=== PATIENT | female | born 1995 | race Caucasian/White ===

== ENCOUNTER 2022-07-08 06:46 | Inpatient (IN) | payer OTHER, SELFPAY ==
[2022-07-08] VITALS (29 sets, daily range): BP systolic 105–136; BP diastolic 59–91; PULSE 90–116; TEMP 36.8–37.4; O2SAT 80–99; BMI 27.8
[2022-07-08 02:41] LABS: ROM Internal Control Test YES-OK TO RESULT pt. (Internal QC); ROM Patient Test Negative (Negative)
[2022-07-08 07:14] LABS: Absolute Neutrophil Count 9.1 X10^3/uL (2.0-7.7); Basophil# 0.04 X10^3/uL; Basophil% 0.3 % (0-1); Eosinophils% 0.8 % (0-5); Hematocrit 37.9 % (37-47); Hemoglobin 12.8 g/dL (12.0-15.0); Mean Corp Hgb Conc 33.8 g/dL (32-36); Mean Corpuscular Hgb 30.4 pg (27.0-32.0); Mean Platelet Vol. 9.9 fl (6.2-12.0); Monocyte# 0.93 X10^3/uL; Monocyte% 7.8 % (0-10); NRBC Flagged by Analyzer 0 % (0-5); Neutrophil # 9.05 X10^3/uL (2.7-7.7); Neutrophil % 75.7 % (47-70); Platelet Count 226 K/mm3 (150-450); RBC Distribution Width SD 42.5 fl (35.1-43.9); Red Blood Count 4.21 M/mm3 (4.2-5.4)
[2022-07-08] MEDS: Lactated Ringers 1,000 ML 50 ML IV (07:20)
[2022-07-08] MEDS: Oxytocin 15 Units/NS 250ml 15 UNITS/250 ML IV.SOLN 2 UNITS IV (07:56)
--- NOTE | 2022-07-08 08:59 | PCM.HP.OB ---
HPI - General General Date of Admission: 07/08/22 Date of Service: 07/08/22 Chief Complaint: SROM HPI Narrative BYRON GROVE, is a 26 F who presents and 39+ weeks gestation with LOF. She reports she woke up around midnight and the bed was saturated with clear fluid. She was then continuing to feel leaking of fluid with moving. Not feeling ctx's. No bleeding. Good FM and she offers no complaints at this time. PFSH PFS Medical History (Updated 07/08/22 @ 09:[address] Apple Nguyen, DO) Depression Home Medications [id number] 1 mg tablet 1 tab PO DAILY 07/08/22 [History Last Taken 07/07/22 08:00] Allergy/AdvReac Type Severity Reaction Status Date / Time No Known Allergies Allergy Verified 07/08/22 02:18 Social History Smoking Status: Never smoker History Elective abortions Hx Para 0 Spontaneous abortions Hx # Term Pregnancies Ectopic pregnancies Hx # Pregnancies Multiple births # of living children NST FHR Rate Baby A FHR Category:: Category I Uterine Activity:: Ctx's q 2-6 min Vital Signs Vital Signs Vital Signs: 07/08/22 02:07 07/08/22 02:07 07/08/22 02:07 Temperature Temperature Source Pulse Rate 106 H Blood Pressure 136/87 H BP Systolic 136 BP Diastolic 87 Pulse Ox 99 07/08/22 02:07 07/08/22 02:07 07/08/22 07:47 Temperature 98.6 F Temperature Source Temporal Pulse Rate Blood Pressure 128/86 H BP Systolic 128 BP Diastolic 86 Pulse Ox 07/08/22 07:47 07/08/22 07:47 07/08/22 07:47 Temperature 99.3 F H Temperature Source Temporal Pulse Rate 90 Blood Pressure BP Systolic BP Diastolic Pulse Ox 07/08/22 08:38 07/08/22 08:38 07/08/22 08:38 Temperature Temperature Source Core Pulse Rate 96 Blood Pressure 125/91 H BP Systolic 125 BP Diastolic 91 Pulse Ox 07/08/22 08:38 Temperature 98.8 F Temperature Source Pulse Rate Blood Pressure BP Systolic BP Diastolic Pulse Ox Weight Weight: 172 lb 9.6 oz Body Mass Index (BMI) 27.8 Physical Exam Const alert and no apparent distress General Appearance: comfortable Labs Labs Labs: Blood Type A POSITIVE Antibody Screen NEGATIVE Hct 37.9 % (37-47) Hgb 12.8 g/dL (12.0-15.0) Assessment & Plan (1) 39 weeks gestation of : PLAN: - Admit for routine intrapartum care. ROM plus was negative but pt had continued to note leaking of fluid, and ctx's q 2-6 min. Had pt lay in bed for 2-3 hours, and examined patient after - on exam fluid noted to be leaking out of the vagina, a large amount of pooling for clear fluid was noted on SSE, cvx rechecked and /-2 with bloody show, possible forebag present. Start PCN for GBS positive. Epidural PRN for pain control. Will start pitocin given pt is comfortable and ctx's are irregular. EFW expected to be < 4500 g and pelvis adequate. Anticipate vaginal delivery. Updated providers contingents supervisor for today. (2) SROM (spontaneous rupture of membranes): (3) Positive GBS test:
[2022-07-08] MEDS: 0.9% Saline Lock 10 ML Syringe IV ×3 (09:31→14:37)
[2022-07-08] MEDS: Penicillin G 3,000,000 Units 50 ML 100 UNITS IV ×3 (12:04→20:57)
[2022-07-08] MEDS: LACTATED RINGERS 500 ML 999 ML IV ×2 (13:38→21:09)
--- NOTE | 2022-07-08 17:45 | PCM.PN.BLA ---
Progress Note Patient seen at bedside. Up in chair rocking. Denies feeling any pain or contractions. Planning on walking the hallways. Physical Exam Const alert and no apparent distress General Appearance: cooperative and comfortable Exam Limitations: no limitations HEENT normocephalic Eyes General Eye: normal appearance of both eyes Neck full ROM General: normal visual inspection Chest Chest: symmetrical chest wall rise Resp normal respiratory effort and normal air movement Effort and Inspection: symmetric chest movement Auscultation: clear to auscultation bilaterally Cardio regular rate and regular rhythm GI normal to inspection, nondistended, normoactive bowel sounds Back/Spine normal ROM Extremity full ROM and no calf tenderness General Extremity: normal exam except as noted Skin no rashes or lesions noted Neuro CN's II-XII intact bilaterally Psych mental status grossly normal Assessment & Plan Assessment/Plan (1) 39 weeks gestation of : (2) SROM (spontaneous rupture of membranes): (3) Positive GBS test: PLAN: Plan Patient treated appropriately for GBS with PCN 3 million units IV every 4 hours CE 2.5/80/-1 Pitocin at 10 mu/min- continue to increase per policy Pain medications /epidural when requested Anticipate
[2022-07-08] MEDS: fentaNYL 100 MCG/2 ML Ampul IV (19:57)
[2022-07-08] MEDS: Calcium Carbonate 500 MG Tablet 1000 MG PO (21:30)
[2022-07-08] MEDS: fentaNYL-bupivacaine (epidural) 100 ML BAG EPIDURAL (21:58)
[2022-07-08] MEDS: Lactated Ringers 1,000 ML 200 ML IV (23:31)
[2022-07-09] VITALS (60 sets, daily range): BP systolic 89–150; BP diastolic 53–102; PULSE 87–158; RESP 16–18; TEMP 36.8–37.7; O2SAT 83–100
[2022-07-09] MEDS: Penicillin G 3,000,000 Units 50 ML 100 UNITS IV ×3 (01:08→09:10)
[2022-07-09] MEDS: fentaNYL-bupivacaine (epidural) 100 ML BAG EPIDURAL ×2 (02:30→06:34)
[2022-07-09] MEDS: Lactated Ringers 1,000 ML 200 ML IV (05:05)
--- NOTE | 2022-07-09 06:33 | PCM.PN.BLA ---
Progress Note Patient seen at bedside. Comfortable with epidural. Denies any pain. Physical Exam Const alert and no apparent distress General Appearance: cooperative Orientation / Consciousness: awake Exam Limitations: no limitations HEENT normocephalic Eyes General Eye: normal appearance of both eyes Neck full ROM Chest inspection of chest normal Resp normal respiratory effort and normal air movement Effort and Inspection: symmetric chest movement Auscultation: clear to auscultation bilaterally Cardio regular rate GI soft to palpation, non-tender and non-distended Inspection: and other Back/Spine normal ROM Extremity full ROM, normal capillary refill and no calf tenderness Skin no rashes or lesions noted Neuro oriented x3 and CN's II-XII intact bilaterally Psych mental status grossly normal Assessment & Plan Assessment/Plan (1) 39 weeks gestation of : (2) SROM (spontaneous rupture of membranes): (3) Positive GBS test: PLAN: Plan Complete dilation/ 0 station Labor down Start pushing in 30 minutes Anticipate
[2022-07-09] MEDS: Oxytocin 10 UNITS/ML Vial IM (11:02)
[2022-07-09] MEDS: LACTATED RINGERS 500 ML 999 ML IV (11:03)
[2022-07-09 11:15] LABS: Absolute Lymphocyte Count 0.96 X10^3/uL (0.83-4.51); Absolute Neutrophil Count 12.4 X10^3/uL (2.0-7.7); Basophil# 0.04 X10^3/uL; Basophil% 0.3 % (0-1); Eosinophil# 0.04 X10^3/uL; Eosinophils% 0.3 % (0-5); Hematocrit 33.6 % (37-47); Hemoglobin 11.4 g/dL (12.0-15.0); Lymphocyte # 0.96 X10^3/ul (0.83-4.51); Lymphocyte % 6.8 % (19-41); Mean Corp Hgb Conc 33.9 g/dL (32-36); Mean Corpuscular Hgb 30.4 pg (27.0-32.0); Mean Corpuscular Volume 89.6 fL (81-99); Mean Platelet Vol. 9.8 fl (6.2-12.0); Monocyte# 0.71 X10^3/uL; NRBC Flagged by Analyzer 0 % (0-5); Neutrophil # 12.36 X10^3/uL (2.7-7.7); Neutrophil % 87.2 % (47-70); Platelet Count 207 K/mm3 (150-450); RBC Distribution Width CV 13.2 % (11.6-14.6); RBC Distribution Width SD 42.8 fl (35.1-43.9); Red Blood Count 3.75 M/mm3 (4.2-5.4); White Blood Count 14.2 K/mm3 (4.4-11.0)
[2022-07-09 11:23] LABS: Prothrombin Time (Protime)PT. 13.2 SECONDS (11.7-14.9)
[2022-07-09 11:24] LABS: Partial Thromboplast Time 29.4 Seconds (24.1-36.2)
--- NOTE | 2022-07-09 11:35 | OP.PCM_ITS ---
Assessment & Plan (1) PROM (premature rupture of membranes): (2) 39 weeks gestation of : (3) (spontaneous vaginal delivery): (4) Laceration of vaginal wall or sulcus without perineal laceration during delivery: (5) Second degree perineal laceration during delivery: (6) Single live : (7) atony of uterus with hemorrhage: Vaginal Delivery Operative Information Date of Procedure: 07/09/22 Surgery / Procedure Performed: Spontaneous Vaginal Delivery Type of Anesthesia: Epidural Drain: Velasquez to straight drain Estimated Blood Loss: 1000 Findings Description of Procedure: Dr. Montilla Note, see [facility] OB op report for delivery details: I was called to the hospital to help with vaginal laceration repair. When I arrived EBL was approximately 400 to 500 cc. Bilateral sulcus tears were noted. Uterus was firm but upon exploration there was a moderate amount of clot that was removed. Once the clot was removed the uterus was then again firm. However it quickly filled up with clot again and was atonic. Patient was given normal dose of Pitocin, and that was completed. I asked for Methergine and IM Pitocin to be given. Uterine massage was performed. Clots were evacuated several more times. I inspected the cervix and did not see any cervical lacerations. The sulcus tears were not bleeding actively. The left sulcus tear was then repaired with 3-0 Vicryl in a running standard fashion. The second- degree laceration was pared with 2-0 Vicryl suture in a running standard fashion. There is still some atony and 1000 mcg of Cytotec was placed rectally. A second IV line was started, IV fluid bolus was given and EBL was approaching 1000 cc. I asked for 2 units to be typed and crossed and held. An abdominal ultrasound was performed. The endometrial cavity was heterogeneous but there were no large clots or evidence of retained placenta. I General banjo curettage was performed 2 passes were made. Minimal amount of clot returned and bright white endometrial stripe noted. At this point decision was made to place the uterine hemorrhage balloon. It was readied and inserted to the fundus. Was inflated with 300 cc of normal saline. At that point the uterus was firm and there was no significant bleeding from the vagina. The right laceration was then repaired. Hemostasis of the lacerations was noted. Velasquez catheter was left in place. A CBC and coags have been obtained. Will give a dose of Ancef for antibiotic prophylaxis because of the extensive uterine exploration. In addition, will follow serial CBCs and monitor patient's vitals and urine output. Findings and procedure reviewed with the patient and her family and their questions were answered to their satisfaction. They understand the plan to leave the balloon and Velasquez in place for 24 hours.
[2022-07-09] MEDS: Ondansetron 4 MG/2 ML Vial IV (11:39)
[2022-07-09 11:40] LABS: ALB/GLOB Ratio 0.6 RATIO (0.9-2.4); AST(SGOT) 25 U/L (15-37); Alanine Aminotransfer ALT/SGPT 19 U/L (13-56); Alkaline Phosphatase 227 U/L (45-117); Anion Gap 7 (5-15); BUN 6 mg/dL (7-18); BUN/Creat Ratio 12.3 RATIO (10-20); Calcium,Total 8.1 mg/dL (8.5-10.1); Chloride 104 mmol/L (98-107); Creatinine, Serum 0.49 mg/dL (0.55-1.02); EST Glomerular Filtration Rate 164 mL/min (>60); Est Glom Filt Rate - Afr Amer 199 mL/min (>60); Globulin 3.3 g/dL (2.2-4.2); Glucose 87 mg/dL (74-106); Potassium 3.6 mmol/L (3.5-5.1); Protein, Total 5.3 g/dL (6.4-8.2); Sodium Level 134 mmol/L (136-145)
--- NOTE | 2022-07-09 11:40 | EX.PCM.OBRPT ---
Assessment & Plan (1) atony of uterus with hemorrhage: (2) Single live : (3) Second degree perineal laceration during delivery: (4) Laceration of vaginal wall or sulcus without perineal laceration during delivery: (5) (spontaneous vaginal delivery): Vaginal Delivery Maternal Presentation Maternal Presentation: Spontaneous Rupture of Membranes Type of Induction: Pitocin (Augmentation) Operative Information Date of Procedure: 07/09/22 Pre-Operative Diagnosis: Term gestation, SROM, Post-Operative Diagnosis: Same, live male infant Surgery / Procedure Performed: Spontaneous Vaginal Delivery Type of Anesthesia: Epidural Drain: Velasquez to straight drain Estimated Blood Loss: 1000 Time of Delivery: 10:20 Findings Description of Procedure: Provided bedside support to patient while pushing for 3 hours. Delivery of infant head with tight nuchal cord x 2 noted. First cord reduced and able to delivery through second cord via somersault maneuver. Vigorous male placed on maternal abdomen and attended to by nursing staff. Pitocin IV started for active management of the third stage of labor. 3 vessel cord clamped and cut by FOB. placed immediately skin to skin with patient. Placenta delivered spontaneous and intact. Uterus boggy and moderate amount of bleeding noted. Fundal massage started and Pitocin IV opened wide. Uterus began to firm. Dr. Montilla notified to come to unit for assistance due to increased bleeding and for assessment of lacerations. See additional operative report from Dr. Montilla. Presentation: Vertex Amniotic Membrane Rupture Type: Spontaneous Time of Membrane Rupture: 07/08/22 0003 Amniotic Fluid Description: Clear Placental Delivery Description: Spontaneous Placenta Disposition: [facility] Cord Vessel Description: 3 Vessels Cord Entanglement: Around neck x 2, tight A Gender: Male (1 minute): 9 (5 minute): 9 Delayed Cord Clamping: Yes Post Vaginal Delivery Medications Given After Delivery: IV Pitocin, IM Methergin and - (Cytotec 1000 mcg [place]) Episiotomy Description: None Laceration: Vaginal Extension/lac (bilateral sulcal ) and 2nd degree
[2022-07-09] MEDS: Cefazolin 2 GM in 0.9% Normal Saline 100 ML IV (12:02)
[2022-07-09] MEDS: miSOPROStol 200 MCG Tablet 1000 MCG RC (12:03)
[2022-07-09] MEDS: Methylergonovine 0.2 MG/ML Ampul IM (12:04)
[2022-07-09] MEDS: Acetaminophen 500 MG Tablet 1000 MG PO ×2 (14:40→21:52)
[2022-07-09] MEDS: 0.9% Normal Saline 1,000 ML 300 ML IV (15:02)
[2022-07-09] MEDS: Naproxen 500 MG Tablet PO (17:42)
[2022-07-09] MEDS: 0.9% Saline Lock 10 ML Syringe IV (21:52)
[2022-07-09] MEDS: Benzocaine/Lanolin/Aloe Vera 1 SPRAY EACH TOPICAL (21:55)
--- NOTE | 2022-07-09 22:36 | NURSING ---
Pt stood up for first time since delivery at 2130 and walked a couple steps. tolerated well with some pain.
[2022-07-10 00:16] VITALS: BP 94/56; PULSE 115; RESP 16; TEMP 37.1; O2SAT 97
[2022-07-10] MEDS: Naproxen 500 MG Tablet PO ×2 (01:49→12:12)
[2022-07-10 03:11] VITALS: BP 93/50; PULSE 101; RESP 16; TEMP 36.8; O2SAT 96
[2022-07-10] MEDS: 0.9% Saline Lock 10 ML Syringe IV (03:18)
[2022-07-10 05:47] LABS: Absolute Lymphocyte Count 2.17 X10^3/uL (0.83-4.51); Absolute Neutrophil Count 11.6 X10^3/uL (2.0-7.7); Basophil# 0.04 X10^3/uL; Basophil% 0.3 % (0-1); Eosinophil# 0.08 X10^3/uL; Eosinophils% 0.5 % (0-5); Hematocrit 27.7 % (37-47); Hemoglobin 9.5 g/dL (12.0-15.0); Lymphocyte # 2.17 X10^3/ul (0.83-4.51); Lymphocyte % 14.2 % (19-41); Mean Corp Hgb Conc 34.3 g/dL (32-36); Mean Corpuscular Hgb 31.4 pg (27.0-32.0); Mean Corpuscular Volume 91.4 fL (81-99); Mean Platelet Vol. 9.8 fl (6.2-12.0); Monocyte# 1.33 X10^3/uL; Monocyte% 8.7 % (0-10); NRBC Flagged by Analyzer 0 % (0-5); Neutrophil # 11.62 X10^3/uL (2.7-7.7); Platelet Count 202 K/mm3 (150-450); RBC Distribution Width CV 13.3 % (11.6-14.6); RBC Distribution Width SD 43.7 fl (35.1-43.9); Red Blood Count 3.03 M/mm3 (4.2-5.4); White Blood Count 15.3 K/mm3 (4.4-11.0)
--- NOTE | 2022-07-10 07:26 | PCM.PN.OB ---
Subjective Subjective Patient seen at bedside. Up ambulating in room last night with assistance. Denies any dizziness, headaches, CP or SOB. Pain controlled with Naproxen. with support. Anticipate discharge home tomorrow. Objective Data Objective Data Vital Signs: Vital Signs Temp Pulse Resp BP Pulse Ox O2 Del Method 98.3 F 101 H 16 93/50 L 96 Room Air 07/10/22 03:11 07/10/22 03:11 07/10/22 03:11 07/10/22 03:11 07/10/22 03:11 07/10/22 03:11 Oxygen Delivery Method Room Air Weight: 172 lb 9.6 oz Body Mass Index (BMI) 27.8 Intake & Output: Intake and Output for Last 24 Hours 07/08/22 07/09/22 07/10/22 23:59 23:59 23:59 Intake Total 4065.61 / 4065.61 3199.39 / 3199.39 Output Total 900 / 900 4800 / 5075 475 / 475 Balance 3165.61 / 3165.61 -1600.61 / -1875.61 -475 / -475 Lab / Micro Data Result Diagrams: 07/10/22 05:30 07/09/22 11:05 Labs: Laboratory Results - last 24 hr 07/08/22 07:00: Crossmatch See Detail 07/09/22 11:05: WBC 14.2 H, RBC 3.75 L, Hgb 11.4 L, Hct 33.6 L, MCV 89.6, MCH 30.4, MCHC 33.9, RDW Std Deviation 42.8, RDW Coeff of Tenzin 13.2, Plt Count 207, MPV 9.8, Immature Gran % (Auto) 0.400, Neut % (Auto) 87.2 H, Lymph % (Auto) 6.8 L, Barnes % (Auto) 5.0, Eos % (Auto) 0.3, Baso % (Auto) 0.3, Absolute Neuts (auto) 12.4 H, Absolute Lymphs (auto) 0.96, Nucleated RBC % 0 07/09/22 11:05: PT 13.2, INR 1.0, APTT 29.4 07/09/22 11:05: Sodium 134 L, Potassium 3.6, Chloride 104, Carbon Dioxide 23.0, Anion Gap 7, BUN 6 L, Creatinine 0.49 L, Estim Creat Clear Calc 164.30, Est GFR (MDRD) Af Amer 199, Est GFR (MDRD) Non-Af 164, BUN/Creatinine Ratio 12.3, Glucose 87, Calcium 8.1 L, Total Bilirubin 0.60, AST 25, ALT 19, Alkaline Phosphatase 227 H, Total Protein 5.3 L, Albumin 2.0 L, Globulin 3.3, Albumin/Globulin Ratio 0.6 L 07/10/22 05:30: WBC 15.3 H, RBC 3.03 L, Hgb 9.5 L, Hct 27.7 L, MCV 91.4, MCH 31.4, MCHC 34.3, RDW Std Deviation 43.7, RDW Coeff of Tenzin 13.3, Plt Count 202, MPV 9.8, Immature Gran % (Auto) 0.300, Neut % (Auto) 76.0 H, Lymph % (Auto) 14.2 L, Barnes % (Auto) 8.7, Eos % (Auto) 0.5, Baso % (Auto) 0.3, Absolute Neuts (auto) 11.6 H, Absolute Lymphs (auto) 2.17, Nucleated RBC % 0 Micro: Microbiology 07/08/22 07:00 Nasal Secretion SARS-CoV-2 Antigen (Rapid) - Final Physical Exam Const alert and no apparent distress General Appearance: cooperative and comfortable Exam Limitations: no limitations HEENT normocephalic Eyes General Eye: normal appearance of both eyes Neck full ROM General: normal visual inspection Chest Chest: symmetrical chest wall rise Resp normal respiratory effort and normal air movement Effort and Inspection: symmetric chest movement Auscultation: clear to auscultation bilaterally Cardio regular rate and regular rhythm GI normal to inspection, nondistended, normoactive bowel sounds Back/Spine normal ROM Extremity full ROM and no calf tenderness General Extremity: normal exam except as noted Skin no rashes or lesions noted Neuro CN's II-XII intact bilaterally Psych mental status grossly normal Assessment & Plan (1) Single live : (2) atony of uterus with hemorrhage: (3) Second degree perineal laceration during delivery: (4) Laceration of vaginal wall or sulcus without perineal laceration during delivery: (5) Anemia due to blood loss, acute: (6) Care and examination of lactating mother: PLAN: Plan PPD 1 Hgb. 9.5 down from admission of 12.8 Start oral iron- patient asymptomatic at this time Start deflation of balloon tamponade 50 cc/ hour until comes out Continue to monitor bleeding D/C barrera once tamponade removed Pain control support Dr. Montilla involved with plan of care
[2022-07-10 08:40] VITALS: BP 111/71; PULSE 130; RESP 18; TEMP 36.2; O2SAT 96
--- NOTE | 2022-07-10 09:05 | NURSING ---
50ml removed from bakri balloon, pt tolerated well and bleeding appropriate.
--- NOTE | 2022-07-10 10:02 | NURSING ---
50ml removed from bakri balloon, bleeding appropriate.
--- NOTE | 2022-07-10 11:05 | NURSING ---
50ml removed from bakri balloon, bleeding appropriate.
--- NOTE | 2022-07-10 12:00 | NURSING ---
50ml removed from bakri balloon, bleeding appropriate.
[2022-07-10] MEDS: Ferrous Sulfate 325 MG Tablet PO ×2 (12:05→16:46)
--- NOTE | 2022-07-10 13:10 | NURSING ---
50ml removed from uterine hemorrhage balloon, bleeding appropriate.
[2022-07-10 14:21] VITALS: BP 98/65; PULSE 99; RESP 16; TEMP 36.8; O2SAT 98
--- NOTE | 2022-07-10 14:23 | NURSING ---
50ml removed from balloon tamponade. Expelled from vagina. Pt tolerated well.
--- NOTE | 2022-07-10 17:03 | NURSING ---
This RN cared for patient on Sunday 07/08 and did not note much interaction between Jese (significant other) and Calli when pt was in labor, then cared for patient 07/10 and Jese is not present in room today. RN asked where Jese was today and his mother who is a support person stated he is home getting some laundry done. Jese's mother has been at the patients bedside during labor and and is assisting to care for infant.
[2022-07-10 20:05] VITALS: BP 112/65; PULSE 129; RESP 16; TEMP 36.5
[2022-07-11 01:54] VITALS: BP 97/52; PULSE 95; RESP 16; TEMP 37
[2022-07-11 05:55] LABS: Absolute Lymphocyte Count 1.44 X10^3/uL (0.83-4.51); Absolute Neutrophil Count 4.3 X10^3/uL (2.0-7.7); Basophil# 0.03 X10^3/uL; Basophil% 0.5 % (0-1); Eosinophil# 0.09 X10^3/uL; Eosinophils% 1.4 % (0-5); Hematocrit 22.9 % (37-47); Hemoglobin 7.4 g/dL (12.0-15.0); Lymphocyte # 1.44 X10^3/ul (0.83-4.51); Lymphocyte % 22.7 % (19-41); Mean Corp Hgb Conc 32.3 g/dL (32-36); Mean Corpuscular Hgb 30.3 pg (27.0-32.0); Mean Corpuscular Volume 93.9 fL (81-99); Mean Platelet Vol. 9.7 fl (6.2-12.0); Monocyte# 0.48 X10^3/uL; Monocyte% 7.6 % (0-10); NRBC Flagged by Analyzer 0 % (0-5); Neutrophil # 4.28 X10^3/uL (2.7-7.7); Neutrophil % 67.3 % (47-70); Platelet Count 184 K/mm3 (150-450); RBC Distribution Width CV 13.7 % (11.6-14.6); RBC Distribution Width SD 46.9 fl (35.1-43.9); Red Blood Count 2.44 M/mm3 (4.2-5.4); White Blood Count 6.4 K/mm3 (4.4-11.0)
--- NOTE | 2022-07-11 07:09 | PN.OBGYN_ITS ---
Subjective Subjective Patient seen at bedside. infant. Cluster feeding. Lochia is decreasing. Ambulating and voiding without difficulty. Pain is minimal. Denies headache, dizziness, SOB or CP. Desires discharge home today. Objective Data Objective Data Vital Signs: Vital Signs Temp Pulse Resp BP Pulse Ox O2 Del Method 98.6 F 95 16 97/52 L 98 Room Air 07/11/22 01:54 07/11/22 01:54 07/11/22 01:54 07/11/22 01:54 07/10/22 14:21 07/11/22 01:54 Oxygen Delivery Method Room Air Weight: 172 lb 9.6 oz Body Mass Index (BMI) 27.8 Intake & Output: Intake and Output for Last 24 Hours 07/09/22 07/10/22 07/11/22 23:59 23:59 23:59 Intake Total 3199.39 / 3199.39 Output Total 4800 / 5075 2250 / 2250 Balance -1600.61 / -1875.61 -2250 / -2250 Lab / Micro Data Result Diagrams: 07/11/22 Unknown 07/09/22 11:05 Labs: Laboratory Results - last 24 hr 07/11/22 : WBC 6.4, RBC 2.44 L, Hgb 7.4 L, Hct 22.9 L, MCV 93.9, MCH 30.3, MCHC 32.3 D, RDW Std Deviation 46.9 H, RDW Coeff of Tenzin 13.7, Plt Count 184, MPV 9.7, Immature Gran % (Auto) 0.500, Neut % (Auto) 67.3, Lymph % (Auto) 22.7, [place] % (Auto) 7.6, Eos % (Auto) 1.4, Baso % (Auto) 0.5, Absolute Neuts (auto) 4.3, Absolute Lymphs (auto) 1.44, Nucleated RBC % 0 Micro: Microbiology 07/08/22 07:00 Nasal Secretion SARS-CoV-2 Antigen (Rapid) - Final ROS Eyes Eyes: Denies blurry vision, change in vision or spots in vision ENT HEENT: Denies dizziness or headache(s) Cardiovascular Cardiovascular: Denies abdominal pain, chest pain or dyspnea Respiratory/Chest Respiratory/Chest: Denies cough, dyspnea, shortness of breath at rest or shortness of breath with exertion Gastrointestinal Gastrointestinal: Denies abdominal pain, diarrhea or vomiting Genitourinary Genitourinary: Denies change in urinary stream, difficulty urinating or dysuria Musculoskeletal Musculoskeletal: Reports none Integumentary Integumentary: Denies rash Neurologic Neurologic: Denies dizziness, headache(s), memory loss or weakness Physical Exam Const alert and no apparent distress General Appearance: cooperative and comfortable Exam Limitations: no limitations HEENT normocephalic Eyes General Eye: normal appearance of both eyes Neck full ROM General: normal visual inspection Chest Chest: symmetrical chest wall rise Resp normal respiratory effort and normal air movement Effort and Inspection: symmetric chest movement Auscultation: clear to auscultation bilaterally Cardio regular rate and regular rhythm GI normal to inspection, nondistended, normoactive bowel sounds Back/Spine normal ROM Extremity full ROM and no calf tenderness General Extremity: normal exam except as noted Skin no rashes or lesions noted Neuro CN's II-XII intact bilaterally Psych mental status grossly normal Assessment & Plan (1) Care and examination of lactating mother: (2) Anemia due to blood loss, acute: (3) Second degree perineal laceration during delivery: (4) Laceration of vaginal wall or sulcus without perineal laceration during delivery: (5) Single live : (6) atony of uterus with hemorrhage: PLAN: Plan PPD 2 with PPH HGB today 7.4- asymptomatic Start IV FE infusion- repeat CBC Will reevaluate if able to be discharged home later
[2022-07-11 09:00] VITALS: BP 100/64; PULSE 97; RESP 16; TEMP 37.2
[2022-07-11] MEDS: 0.9% Saline Lock 10 ML Syringe IV (09:03)
[2022-07-11 12:27] LABS: Hematocrit 24.4 % (37-47); Hemoglobin 8.1 g/dL (12.0-15.0); Mean Corp Hgb Conc 33.2 g/dL (32-36); Mean Corpuscular Hgb 30.9 pg (27.0-32.0); Mean Corpuscular Volume 93.1 fL (81-99); Mean Platelet Vol. 9.5 fl (6.2-12.0); Platelet Count 212 K/mm3 (150-450); RBC Distribution Width CV 13.8 % (11.6-14.6); RBC Distribution Width SD 46.3 fl (35.1-43.9); Red Blood Count 2.62 M/mm3 (4.2-5.4); White Blood Count 7.5 K/mm3 (4.4-11.0)
[2022-07-11] MEDS: Ferrous Sulfate 325 MG Tablet PO (13:07)
[2022-07-11 15:00] VITALS: BP 104/59; PULSE 104; RESP 18; TEMP 37.2
--- NOTE | 2022-07-11 17:26 | DCINST_ITS ---
Discharge Instructions Diet Discharge Diet: No restrictions Activity Discharge Activity: May Shower May resume sexual activity in: 6 weeks Weight Bearing Status: Weight bearing as tolerated Lifting Restrictions: nothing heavier than baby Dressing / Incision Call your doctor if you observe: Fever of 101 or Higher, Coldness, Increased Pain, Numbness or Tingling, Change in Color, Inability to urinate, Inability to have a bowel movement, Using more than 1 pad per hour, Shortness of breath, Dizziness, Fainting spells, Swelling in the ankles, Chest pain, Increased palpitations (irregular heartbeat), Calf discomfort and Uncontrolled pain Follow Up Care When: 1-2 weeks for early 6 weeks for Test Results: Test results from this visit will be discussed in further detail at your follow- up appointment, if applicable. Discharge Plan Admission Admit Date/Time: 07/08/22 06:46 Primary Reason for Your Visit: delivery Attending Provider: Leigh Ann Bruce Discharge Orders/Prescriptions Prescriptions: New ferrous sulfate 325 mg (65 mg iron) tablet,delayed release (DR/EC) 325 mg PO QODAY Qty: 30 0RF No Action 1 mg Tablet 1 tab PO DAILY Disposition Disposition (needs filled in before D/C Order can be placed): Home, Self Care
--- NOTE | 2022-07-11 18:05 | CASEMGMT ---
Social Work Assessment Labor and Delivery Unit Patient Address: [facility] [address], [place] [address] Phone number: [phone] Date of Referral: 07.09.22 Time of Referral:399 Referred By: Leigh Ann Bruce CNM Date of Intervention: 07.11.22 Time of Intervention: Approximately 6484-5425 Reason for Referral: Maternal History of Depression History obtained from: Medical records and mother of baby (MOB) Calli Trejo Household composition: MOB and father of baby (FOB) Jese Trejo, & 2 dogs. Plan for to reside in home. Patient's parent/guardian status: MOB is a 25 year old female, to the FOB who is also 25 for the last 1 year. MOB denies any type of abuse, control, or intimidation in this relationship. Denies any type of safety concerns. [place] baby boy, Primo Trejo 07-09-2021) is the first child for both parents. Medical History: OB is 1, para 0 now 1 after delivering Primo. care started in [place] at [facility], will transfer care to [facility] at 28 weeks gestation. Per record maternal hemorrhage with anemia due to blood loss. 's with Apgars of 9 and 9 at 1 and 5 minutes of life respectively. weight 7 pounds 7 ounces. Educational Status: MOB reports 1-1/2 semesters of college. No concerns with reading, writing, or learning comprehension. Financial Status: FOB works at a [employer] second shift but hopes to to go to first shift in the near future. MOB works full-time in [employer]. Infant Supplies: MOB reports to have all necessary supplies to care for the infant including safe sleep space and a car seat. Reports to have clothing, diapers and wipes. Breast pump in place. Plans to breast-feed. Childcare/Caregiver(s): MOB and FOB plan to be primary caregivers including when both returned to work. 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 Denies concerns with transportation. Programs/Agencies Involved: No agency involvement at this time. Insurance is through FOB's work. MOB plans to look at work. Declines referral to [employer] or early Headstart at this time. Behavioral Health Issues: Mental Health History: MOB reports history of depression and past suicide attempts approximately 1 year ago, about 2 to 3 months prior to conception. Suicide attempt by overdose, took a bunch of pills. MOB reports that after taking the pills realized it was a mistake and told the FOB who took the MOB to the hospital. MOB reports inpatient hospitalization with starting of medication and therapy. Reports no longer in therapy or on medication, and reports to feel that once became saw an improvement with mood. MOB denies any thoughts of suicide at this time, or during . Reports to have people to talk to if feeling in distress (FOB, [id number], and a female cousin). Substance Use History: Denies any substance use history. No alcohol. No Marijuana or other illicit drugs. Family History: Denies family history of Bipolar or schizophrenia. Drug Screens: None noted in chart. Family/Social Stressors: Moved from [place] to [place] mid-. Unplanned though accepted. Maternal menta health crisis in the last year, though reporting improvement in mood. Support Systems: Cousin is primary emotional support. Additional support from FOB, [id number]-fed, MOB's father, and then MOB's mother. Kppxej-dx-hqw is in town for 2 weeks to help with transition home with baby and as FOB needs to continue to work. Indicated belief that FOB will also be a support in helping with baby. Depression/Shaken Baby/Safe Sleeping: MOB provided information on topics and verbally reviewed. ASSESSMENT: Collaboration with nursing and received handoff that FOB has not really been at hospital helping with baby, but the [id number] has been the support. Met with MOB in room, introducing to self and social work role. MOB sitting in chair, alone in room, holding baby. MOB held baby throughout social work visit. MOB appeared gentle with baby and did smile when talking to baby, though appeared to be using own finger in baby's mouth to help sooth baby. This leader writer noted baby to be suckling the finger. MOB reported that baby needs something to suck on or will cry. MOB reports to feel a connection to the baby and to love the baby. Reports MOB's depression reduced when became and has felt better. MOB denies current concerns with depression, but acknowledges understanding that depression is something which can happen. Educated to depression and anxiety, risk factors, and importance of seeking out support/talking about concerns should symptoms and distress arise. MOB reports understanding and agreement. MOB able to identify 3 people can talk to if distress occurs, including the FOB. MOB teary eyed when topic of arose, but quickly dissipated. Emotional support offered. Encouraged MOB that all women are at risk, though not to blame nor a failure as a parent. No identified SI, and shared with this leader writer that is glad did not succeed with suicide completion last year, and identified the action as a mistake. MOB reports theelg-sp-jep will be available to help MOB for the two weeks, reporting this support person has been in hospital helping MOB and helping MOB get sleep at night. MOB reports the FOB has needed to return to work and why has not really been present since . MOB reports to feel housing is stable, no issues with basic needs. MOB accepted information on mood and anxiety disorders, online and local resources for support. Provided [facility] resource list, and marked information on WIC, HMG, and Early Head Start. MOB denies any needs for home going. MOB held good eye contact, appeared reserved and guarded with questions as evidenced by slightly delayed responses. MOB answered all questions however, and at times even offered more information the actual question asked. MOB smiled at appropriate times. Affect constricted. Reported to be looking forward to going home. For continuity of care, did update Dr. Nguyen about MOB's history of suicide attempt in the last year (which would be a risk factor for PPD), as noted in the C record that MOB denied any history related to SI and no history of attempt disclosed. Physician reports will note in MOB's record to have office follow up with MOB , check on how doing. PLAN: MOB and baby discharging home. Resources given for PPD, including local counseling and online supports. No other services requested or indicated. -STEFFANIE Navarrete, LETICIA *This note was generated with [employer] software. It may contain incorrect words, spelling, and punctuation that were not noted in review of the chart prior to signing*
== END 2022-07-11 18:35 | disposition home or self-care (01) | DRG 806 ==
LOC: WPOUT 06:58 → WP 06:58
PROVIDERS: Obstetrics & Gynecology; Admitting Provider Advanced Practice Midwife; Visit Provider Advanced Practice Midwife
DX: O42.92 Full-term premature rupture of membranes, unspecified as to length of time between rupture and onset of labor (principal); Z37.0 Single live birth; D62 Acute posthemorrhagic anemia; O99.02 Anemia complicating childbirth; O70.1 Second degree perineal laceration during delivery; O99.824 Streptococcus B carrier state complicating childbirth; Z3A.39 39 weeks gestation of pregnancy; O62.2 Other uterine inertia; B95.1 Streptococcus, group B, as the cause of diseases classified elsewhere
CPT/HCPCS: 59025; 59050; 80053; 84112; 85025; 85027; 85610; 85730; 86850; 86900; 86901; 86920; 87426; 99218; J1756; J7030; J7120; A4216; G0378; J2405